=== PATIENT | female | born 1945 | race Caucasian/White ===

== ENCOUNTER 2017-04-27 17:52 | Inpatient (IN) | payer OTHER, BC ==
[~2017-04-27] VITALS: Ht 160 cm; Wt 114.7 kg
[~2017-04-27 17:52] MED LIST: ALLOPURINOL100 MG PO; AMIODARONE HCL200 MG PO; APRESOLINE10 MG PO; BUSPAR10 MG PO; COLACE100 MG PO; CORDARONE200 MG PO; COUMADIN2 MG PO; FERROUS SULFAT325 MG PO; FUROSEMIDE80 MG PO; ISOSORBIDE DINI10 MG PO; KEFLEX500 MG PO; LASIX80 MG PO; LO-DOSE ASPIRIN81 M1 PO; OMEPRAZOLE20 MG PO; PRILOSEC20 MG PO; WARFARIN SODIUM2 MG PO; ZYLOPRIM100 MG PO
[2017-04-27 19:07] LABS: HEMATOCRIT 36.9 % (36.0-46.0); MCH 31.8 PG (29.0-34.0); MCHC 33.3 G/DL (30.0-36.0); MCV 95.3 FL (83-99); MEAN PLAT.VOLUME 9.9 uM^3 (9.5-12.4); PLATELET COUNT 125 K/uL (156-360); RBC DIS.WIDTH-CV 14.6 % (11.8-14.6); RBC DIS.WIDTH-SD 50.9 % (39-53); RED BLOOD COUNT 3.87 M/uL (3.80-5.20); WHITE BLOOD COUNT 11.8 K/uL (4.1-10.2)
[2017-04-27 19:20] LABS: CHLORIDE 103 mEq/L (99-109); POTASSIUM 3.8 mEq/L (3.7-5.4); SODIUM 137 mEq/L (136-147)
[2017-04-27 19:22] LABS: GLUCOSE 123 mg/dL (70-99)
[2017-04-27 19:23] LABS: ANION GAP 11 MEQ/L (2-14)
[2017-04-27 19:24] LABS: TOTAL BILIRUBIN 0.9 mg/dL (0.0-1.0)
[2017-04-27 19:26] LABS: ALKALINE PHOSPHATASE 99 IU/L (3-129); GFR ESTIMATE (CALCULATED) 23 mL/min/
[2017-04-27 19:27] LABS: D-DIMER ELISA > 4.00 mg/L FEU (< 0.57); TROP-I INTERPRETATION NEGATIVE; UREA NITROGEN (BUN) 56 mg/dL (9-23)
[2017-04-27 19:29] LABS: CREATINE KINASE 16 IU/L (1-294)
[2017-04-27 19:44] LABS: INTER. NORMALIZED RATIO 3.4; PROTHROMBIN TIME 36.3 (9.2-11.2); PTT 29.9 (25-32)
[2017-04-27 19:53] LABS: ADD MIUA? YES; BILIRUBIN NEGATIVE; BLOOD SMALL; COLOR YELLOW ((YELLOW)); GLUCOSE (STRIP) NEGATIVE; KETONES NEGATIVE; LEUKOCYTES SMALL; NITRITE NEGATIVE; PROTEIN (STRIP) NEGATIVE; SPECIFIC GRAVITY 1.017 (1.000-1.030); UROBILINOGEN 0.2 MG/DL (0.2-1.0)
[2017-04-27 20:05] LABS: BACTERIA RARE /HPF; EPITHELIAL CELLS 2+ /HPF; MUCUS TRACE /LPF; RED BLOOD CELLS 0-5 /HPF (0-5); UCUL ADDED? NO
[2017-04-27] MEDS ORDERED: COUMADIN3 MG PO (20:45)
[2017-04-27] MEDS ORDERED: SANCTURA XR60 MG PO (20:48)
[2017-04-27] MEDS ORDERED: CLEOCIN300 MG PO (20:50)
[2017-04-27 22:59] VITALS: BP 135/62
[2017-04-28 02:13] LABS: TROP-I INTERPRETATION NEGATIVE; TROPONIN-I 0.11 ng/mL (0.0-0.30)
[2017-04-28 04:37] VITALS: BP 131/60
[2017-04-28 07:50] LABS: HEMATOCRIT 31.4 % (36.0-46.0); MCH 32.6 PG (29.0-34.0); MCHC 33.8 G/DL (30.0-36.0); MCV 96.6 FL (83-99); MEAN PLAT.VOLUME 10.4 uM^3 (9.5-12.4); PLATELET COUNT 110 K/uL (156-360); RBC DIS.WIDTH-CV 14.9 % (11.8-14.6); RBC DIS.WIDTH-SD 52.9 % (39-53); RED BLOOD COUNT 3.25 M/uL (3.80-5.20); WHITE BLOOD COUNT 9.8 K/uL (4.1-10.2)
[2017-04-28 07:59] LABS: PROTHROMBIN TIME 31.4 (9.2-11.2)
[2017-04-28 08:20] LABS: TROP-I INTERPRETATION NEGATIVE; TROPONIN-I 0.09 ng/mL (0.0-0.30)
[2017-04-28 08:21] LABS: ALKALINE PHOSPHATASE 76 IU/L (3-129); ANION GAP 7 MEQ/L (2-14); CHLORIDE 107 MEQ/L (99-109); GFR ESTIMATE (CALCULATED) 26 mL/min/; GLUCOSE 110 mg/dL (70-99); POTASSIUM 3.7 MEQ/L (3.7-5.4); SAMPLE HEMOLYSIS CHECK 0; SAMPLE ICTERIC CHECK 0; SAMPLE LIPEMIA CHECK 0; SODIUM 141 MEQ/L (136-147); TOTAL BILIRUBIN 1.1 MG/DL (0.0-1.0); UREA NITROGEN (BUN) 55 mg/dL (9-23)
[2017-04-28 09:00] VITALS: BP 139/64; BP 142/65
[2017-04-28 09:07] VITALS: BP 144/70
[2017-04-28 12:00] VITALS: BP 129/60
[2017-04-28 13:40] VITALS: BP 134/65
[2017-04-28 18:14] LABS: METH RESISTANT S AUREUS PCR NEGATIVE (NEGATIVE)
[2017-04-28 18:18] LABS: PROBE CHECK PASS; SPECIMEN PROCESSING CONTROL PASS
[2017-04-28 19:00] VITALS: BP 131/60
[2017-04-29] VITALS (7 sets, daily range): BP systolic 127–164; BP diastolic 58–70
[2017-04-29 07:36] LABS: INTER. NORMALIZED RATIO 1.7; PROTHROMBIN TIME 17.9 (9.2-11.2)
[2017-04-29 08:28] LABS: HEMATOCRIT 30.8 % (36.0-46.0); MCH 32.1 PG (29.0-34.0); MCHC 33.4 G/DL (30.0-36.0); PLATELET COUNT 114 K/uL (156-360); RBC DIS.WIDTH-CV 14.8 % (11.8-14.6); RBC DIS.WIDTH-SD 51.9 % (39-53); RED BLOOD COUNT 3.21 M/uL (3.80-5.20)
[2017-04-29 08:30] LABS: WHITE BLOOD COUNT 6.4 K/uL (4.1-10.2)
[2017-04-29 08:42] LABS: ANION GAP 9 MEQ/L (2-14); CHLORIDE 108 MEQ/L (99-109); GFR ESTIMATE (CALCULATED) 31 mL/min/; GLUCOSE 104 mg/dL (70-99); POTASSIUM 3.6 MEQ/L (3.7-5.4); SAMPLE HEMOLYSIS CHECK 0; SAMPLE ICTERIC CHECK 0; SAMPLE LIPEMIA CHECK 0; SODIUM 141 MEQ/L (136-147); UREA NITROGEN (BUN) 48 mg/dL (9-23)
[2017-04-30 00:23] VITALS: BP 142/56
[2017-04-30 04:05] VITALS: BP 143/84
[2017-04-30 07:26] LABS: INTER. NORMALIZED RATIO 1.6; PROTHROMBIN TIME 16.3 (9.2-11.2)
[2017-04-30 07:50] VITALS: BP 131/58
[2017-04-30 10:19] LABS: HEMATOCRIT 32.2 % (36.0-46.0); MCHC 33.2 G/DL (30.0-36.0); MCV 96.4 FL (83-99); MEAN PLAT.VOLUME 10.2 uM^3 (9.5-12.4); NRBC (%) 0.3 /100 WBC (0-0); PLATELET COUNT 127 K/uL (156-360); RBC DIS.WIDTH-CV 14.6 % (11.8-14.6); RBC DIS.WIDTH-SD 51.4 % (39-53); RED BLOOD COUNT 3.34 M/uL (3.80-5.20); WHITE BLOOD COUNT 6.8 K/uL (4.1-10.2)
[2017-04-30 10:48] LABS: ALKALINE PHOSPHATASE 78 IU/L (3-129); ANION GAP 8 MEQ/L (2-14); CHLORIDE 109 MEQ/L (99-109); GFR ESTIMATE (CALCULATED) 33 mL/min/; GLUCOSE 99 mg/dL (70-99); POTASSIUM 3.7 MEQ/L (3.7-5.4); SAMPLE HEMOLYSIS CHECK 0; SAMPLE ICTERIC CHECK 0; SAMPLE LIPEMIA CHECK 0; SODIUM 141 MEQ/L (136-147); TOTAL BILIRUBIN 1.1 MG/DL (0.0-1.0); UREA NITROGEN (BUN) 40 mg/dL (9-23)
[2017-04-30 11:32] VITALS: BP 140/61
[2017-04-30 16:04] VITALS: BP 129/59
[2017-04-30 20:00] VITALS: BP 121/55
[2017-05-01 00:04] VITALS: BP 148/65
[2017-05-01 04:03] VITALS: BP 129/69
[2017-05-01 06:42] LABS: INTER. NORMALIZED RATIO 1.6; PROTHROMBIN TIME 16.8 (9.2-11.2)
[2017-05-01 08:15] VITALS: BP 174/72
[2017-05-01] MEDS ORDERED: COUMADIN2 MG PO (09:40)
[2017-05-01] MEDS ORDERED: LOVENOX100 MG/1 M SC ×2 (09:41→09:52)
[2017-05-01] MEDS ORDERED: AMPICILLIN SODIU2 GM IV (09:41)
[2017-05-01 12:29] VITALS: BP 159/66
== END 2017-05-01 15:32 | DRG 872 ==
LOC: EME 17:52 → EDOF 21:13 → 5WEST 21:13
PROVIDERS: Family Medicine; Hospitalist; Internal Medicine; Physician Assistant
DX: A41.81 Sepsis due to Enterococcus (principal); I10 Essential (primary) hypertension; I65.21 Occlusion and stenosis of right carotid artery; D69.6 Thrombocytopenia, unspecified; I50.9 Heart failure, unspecified; K21.9 Gastro-esophageal reflux disease without esophagitis; R55 Syncope and collapse; N18.3 Chronic kidney disease, stage 3 (moderate); Z95.2 Presence of prosthetic heart valve; Z79.01 Long term (current) use of anticoagulants; Z95.0 Presence of cardiac pacemaker
CPT/HCPCS: 71020; 71250; 76937; 78582; 80048; 80053; 81003; 82550; 83605; 84484; 85027; 85379; 85610; 85730; 87040; 87077; 87081; 87186; 87641; 87801; 93005; 93306; 93880; 94799; 99281; 99285; A9540; A9567; G0378; G8978 GP CH; G8979 GP CH; G8980 GP CH; J0290; J1650; J7040; J7050

== ENCOUNTER 2017-08-06 13:36 | Inpatient (IN) | payer OTHER, BC ==
[~2017-08-06] VITALS: Ht 157.5 cm; Wt 115.7 kg
[~2017-08-06 13:36] MED LIST changes: +AMPICILLIN SODIU2 GM IV; -BUSPAR10 MG PO; +CLEOCIN300 MG PO; -COLACE100 MG PO; +COUMADIN3 MG PO; -FERROUS SULFAT325 MG PO; -LASIX80 MG PO; +LOVENOX100 MG/1 M SC; -PRILOSEC20 MG PO; -ZYLOPRIM100 MG PO
[2017-08-06 15:40] LABS: EOSINOPHIL (%) 0.1 % (0-5); HEMATOCRIT 33.3 % (36.0-46.0); IMMATURE GRANULOCYTE (%) 0.7 % (0.0-0.7); IMMATURE GRANULOCYTE COUNT 0.1 K/uL; INSTRUMENT ABS NEUTROPHIL CT 12.4 K/uL; LYMPHOCYTE COUNT 0.3 K/uL (1.0-2.8); MCH 31.4 PG (29.0-34.0); MCHC 33.3 G/DL (30.0-36.0); MCV 94.3 FL (83-99); MEAN PLAT.VOLUME 10.7 uM^3 (9.5-12.4); MONOCYTE COUNT 0.7 K/uL (0-0.8); NEUTROPHIL (%) 91.8 % (45-76); NEUTROPHIL COUNT 12.4 K/uL (1.8-6.4); PLATELET COUNT 76 K/uL (156-360); RBC DIS.WIDTH-CV 19.1 % (11.8-14.6); RBC DIS.WIDTH-SD 64.9 % (39-53); RED BLOOD COUNT 3.53 M/uL (3.80-5.20); WHITE BLOOD COUNT 13.5 K/uL (4.1-10.2)
[2017-08-06 15:49] LABS: CHLORIDE 106 mEq/L (99-109); POTASSIUM 4.9 mEq/L (3.7-5.4); SODIUM 137 mEq/L (136-147)
[2017-08-06 15:50] LABS: MAGNESIUM 1.8 mg/dL (1.3-2.7)
[2017-08-06 15:51] LABS: GLUCOSE 117 mg/dL (70-99)
[2017-08-06 15:52] LABS: ANION GAP 11 MEQ/L (2-14)
[2017-08-06 15:55] LABS: GFR ESTIMATE (CALCULATED) 22 mL/min/
[2017-08-06 15:56] LABS: UREA NITROGEN (BUN) 71 mg/dL (9-23)
[2017-08-06 16:00] LABS: TROP-I INTERPRETATION NEGATIVE; TROPONIN-I 0.23 ng/mL (0.0-0.30)
[2017-08-06 16:06] LABS: ADD MIUA? YES; BILIRUBIN NEGATIVE; BLOOD NEGATIVE; COLOR AMBER ((YELLOW)); GLUCOSE (STRIP) NEGATIVE; KETONES NEGATIVE; LEUKOCYTES NEGATIVE; NITRITE NEGATIVE; PROTEIN (STRIP) NEGATIVE; SPECIFIC GRAVITY 1.014 (1.000-1.030)
[2017-08-06 16:16] LABS: BACTERIA NONE SEEN /HPF; EPITHELIAL CELLS RARE /HPF; MUCUS TRACE /LPF; RED BLOOD CELLS 0-5 /HPF (0-5); UCUL ADDED? NO; WHITE BLOOD CELLS 0-5 /HPF (0-5)
[2017-08-06 16:19] LABS: PTT 31.1 SEC (25-37)
[2017-08-06 16:23] LABS: PROTHROMBIN TIME 53.5 SEC (10.2-12.9)
[2017-08-06 16:24] LABS: INTER. NORMALIZED RATIO 4.6
[2017-08-06 16:44] LABS: INFLUENZA A VIRAL ANTIGEN NEGATIVE; INFLUENZA B VIRAL ANTIGEN NEGATIVE
[2017-08-06] MEDS ORDERED: ZYLOPRIM100 MG PO (18:44)
[2017-08-06] MEDS ORDERED: FERROUS SULFAT325 MG PO (18:44)
[2017-08-06] MEDS ORDERED: ISOSORBIDE DINI10 MG PO (18:44)
[2017-08-06] MEDS ORDERED: PRILOSEC20 MG PO (18:44)
[2017-08-06] MEDS ORDERED: COLACE100 MG PO (18:44)
[2017-08-06] MEDS ORDERED: SANCTURA XR60 MG PO (18:44)
[2017-08-06] MEDS ORDERED: BUSPAR10 MG PO (18:44)
[2017-08-06] MEDS ORDERED: APRESOLINE10 MG PO (18:44)
[2017-08-06] MEDS ORDERED: LASIX80 MG PO (18:44)
[2017-08-06] MEDS ORDERED: KLOR-CON M2020 MEQ PO (18:46)
[2017-08-06] MEDS ORDERED: COUMADIN3 MG PO (18:46)
[2017-08-06] MEDS ORDERED: COUMADIN2 MG PO (18:46)
[2017-08-06] MEDS ORDERED: PERCOCET 5/31 TABLET PO (18:46)
[2017-08-06] MEDS ORDERED: ASPIR 8181 M1 PO (18:47)
[2017-08-06] MEDS ORDERED: FLEXERIL5 MG PO (18:47)
[2017-08-07 03:54] VITALS: BP 135/66
[2017-08-07 06:22] LABS: HEMATOCRIT 31.7 % (36.0-46.0); MCH 31.3 PG (29.0-34.0); MCHC 31.9 G/DL (30.0-36.0); MCV 98.1 FL (83-99); MEAN PLAT.VOLUME 11.2 uM^3 (9.5-12.4); PLATELET COUNT 74 K/uL (156-360); RBC DIS.WIDTH-CV 19.4 % (11.8-14.6); RBC DIS.WIDTH-SD 69.3 % (39-53); RED BLOOD COUNT 3.23 M/uL (3.80-5.20); WHITE BLOOD COUNT 12.3 K/uL (4.1-10.2)
[2017-08-07 06:49] LABS: ANION GAP 10 MEQ/L (2-14); CHLORIDE 106 MEQ/L (99-109); GFR ESTIMATE (CALCULATED) 23 mL/min/; GLUCOSE 101 mg/dL (70-99); POTASSIUM 4.9 MEQ/L (3.7-5.4); SAMPLE HEMOLYSIS CHECK 0; SAMPLE ICTERIC CHECK 0; SAMPLE LIPEMIA CHECK 0; SODIUM 136 MEQ/L (136-147); UREA NITROGEN (BUN) 74 mg/dL (9-23)
[2017-08-07 08:46] VITALS: BP 136/74
[2017-08-07 11:33] LABS: INTER. NORMALIZED RATIO 5.7; PROTHROMBIN TIME 67.7 SEC (10.2-12.9)
[2017-08-07 11:34] VITALS: BP 132/60
[2017-08-07 18:23] VITALS: BP 181/93
[2017-08-07 23:37] VITALS: BP 146/65
[2017-08-08 03:30] VITALS: BP 144/63
[2017-08-08 07:08] LABS: EOSINOPHIL (%) 0.1 % (0-5); HEMATOCRIT 30.5 % (36.0-46.0); IMMATURE GRANULOCYTE (%) 1.3 % (0.0-0.7); IMMATURE GRANULOCYTE COUNT 0.2 K/uL; INSTRUMENT ABS NEUTROPHIL CT 17.4 K/uL; LYMPHOCYTE COUNT 0.6 K/uL (1.0-2.8); MCH 31.5 PG (29.0-34.0); MCHC 32.8 G/DL (30.0-36.0); MCV 96.2 FL (83-99); MEAN PLAT.VOLUME 11.4 uM^3 (9.5-12.4); MONOCYTE (%) 4.8 % (3-12); MONOCYTE COUNT 0.9 K/uL (0-0.8); NEUTROPHIL (%) 90.4 % (45-76); NEUTROPHIL COUNT 17.4 K/uL (1.8-6.4); PLATELET COUNT 85 K/uL (156-360); RBC DIS.WIDTH-CV 19.3 % (11.8-14.6); RBC DIS.WIDTH-SD 66.6 % (39-53); RED BLOOD COUNT 3.17 M/uL (3.80-5.20); WHITE BLOOD COUNT 19.2 K/uL (4.1-10.2)
[2017-08-08 07:16] LABS: INTER. NORMALIZED RATIO 7.5; PROTHROMBIN TIME 89.4 SEC (10.2-12.9)
[2017-08-08 07:31] LABS: ALKALINE PHOSPHATASE 90 IU/L (3-129); ANION GAP 10 MEQ/L (2-14); CHLORIDE 105 MEQ/L (99-109); GFR ESTIMATE (CALCULATED) 19 mL/min/; GLOBULINS 3.6 G/DL (2.3-3.5); GLUCOSE 125 mg/dL (70-99); POTASSIUM 4.9 MEQ/L (3.7-5.4); SAMPLE HEMOLYSIS CHECK 0; SAMPLE ICTERIC CHECK 0; SAMPLE LIPEMIA CHECK 0; SODIUM 134 MEQ/L (136-147); TOTAL BILIRUBIN 1.6 MG/DL (0.0-1.0); UREA NITROGEN (BUN) 74 mg/dL (9-23)
[2017-08-08 07:49] VITALS: BP 130/60
[2017-08-08 11:02] VITALS: BP 122/68
[2017-08-08 15:26] VITALS: BP 138/62
[2017-08-08 19:08] VITALS: BP 162/78
[2017-08-08 23:49] VITALS: BP 123/64
[2017-08-09 03:35] VITALS: BP 133/74
[2017-08-09 05:49] LABS: HEMATOCRIT 31.6 % (36.0-46.0); MCH 32.1 PG (29.0-34.0); MCHC 32.6 G/DL (30.0-36.0); MCV 98.4 FL (83-99); MEAN PLAT.VOLUME 11.2 uM^3 (9.5-12.4); PLATELET COUNT 85 K/uL (156-360); RBC DIS.WIDTH-CV 19.5 % (11.8-14.6); RBC DIS.WIDTH-SD 69.4 % (39-53); RED BLOOD COUNT 3.21 M/uL (3.80-5.20); WHITE BLOOD COUNT 9.7 K/uL (4.1-10.2)
[2017-08-09 06:10] LABS: ANION GAP 10 MEQ/L (2-14); CHLORIDE 106 MEQ/L (99-109); GFR ESTIMATE (CALCULATED) 23 mL/min/; GLUCOSE 119 mg/dL (70-99); POTASSIUM 4.4 MEQ/L (3.7-5.4); SAMPLE HEMOLYSIS CHECK 0; SAMPLE ICTERIC CHECK 0; SAMPLE LIPEMIA CHECK 0; SODIUM 136 MEQ/L (136-147); UREA NITROGEN (BUN) 71 mg/dL (9-23)
[2017-08-09 06:51] LABS: INTER. NORMALIZED RATIO 6.4; PROTHROMBIN TIME 75.9 SEC (10.2-12.9)
[2017-08-09 07:48] VITALS: BP 127/80
[2017-08-09 11:32] LABS: ANTI-HEPATITIS A VIRUS (IGM) Nonreactive; HAV INDEX 0.18; HBSG INDEX 0.16; HPCA INDEX 0.15
[2017-08-09 11:34] LABS: ANTI-HEPATITIS B CORE (IGM) Nonreactive; HBC IgM INDEX 0.21
[2017-08-09 11:45] VITALS: BP 149/70
[2017-08-09 16:17] VITALS: BP 136/88
[2017-08-09 20:24] VITALS: BP 170/75
[2017-08-09 23:56] VITALS: BP 138/63
[2017-08-10 04:08] VITALS: BP 124/69
[2017-08-10 05:43] LABS: HEMATOCRIT 30.7 % (36.0-46.0); MCH 32.4 PG (29.0-34.0); MCHC 32.9 G/DL (30.0-36.0); MCV 98.4 FL (83-99); PLATELET COUNT 94 K/uL (156-360); RBC DIS.WIDTH-CV 19.6 % (11.8-14.6); RBC DIS.WIDTH-SD 69.2 % (39-53); RED BLOOD COUNT 3.12 M/uL (3.80-5.20); WHITE BLOOD COUNT 9.6 K/uL (4.1-10.2)
[2017-08-10 06:08] LABS: PROTHROMBIN TIME 65.6 SEC (10.2-12.9)
[2017-08-10 06:11] LABS: INTER. NORMALIZED RATIO 5.6
[2017-08-10 06:16] LABS: ANION GAP 9 MEQ/L (2-14); CHLORIDE 105 MEQ/L (99-109); GFR ESTIMATE (CALCULATED) 24 mL/min/; GLUCOSE 105 mg/dL (70-99); POTASSIUM 4.6 MEQ/L (3.7-5.4); SAMPLE HEMOLYSIS CHECK 0; SAMPLE ICTERIC CHECK 0; SAMPLE LIPEMIA CHECK 0; SODIUM 136 MEQ/L (136-147); UREA NITROGEN (BUN) 69 mg/dL (9-23)
[2017-08-10 08:12] VITALS: BP 136/82
[2017-08-10 11:01] LABS: ALBUMIN 2.97 G/DL (3.6-4.9); ALBUMIN PERCENT 47.2 % (49.3-67.1); ALPHA-1 GLOBULIN 0.59 G/DL (0.15-0.40); ALPHA-1 PERCENT 9.3 % (2.1-5.5); ALPHA-2 GLOBULIN 0.56 G/DL (0.45-0.85); ALPHA-2 PERCENT 8.9 % (6.2-11.6); BETA PERCENT 8.6 % (8.9-15.8)
[2017-08-10 12:04] VITALS: BP 132/61
[2017-08-10 15:34] VITALS: BP 128/59
[2017-08-10 20:00] VITALS: BP 112/70
[2017-08-11 00:03] VITALS: BP 110/71
[2017-08-11 03:49] VITALS: BP 130/61
[2017-08-11 06:32] LABS: ANION GAP 9 MEQ/L (2-14); CHLORIDE 104 MEQ/L (99-109); GFR ESTIMATE (CALCULATED) 24 mL/min/; GLUCOSE 107 mg/dL (70-99); POTASSIUM 4.7 MEQ/L (3.7-5.4); SAMPLE HEMOLYSIS CHECK 0; SAMPLE ICTERIC CHECK 0; SAMPLE LIPEMIA CHECK 0; SODIUM 135 MEQ/L (136-147); UREA NITROGEN (BUN) 68 mg/dL (9-23)
[2017-08-11 06:44] LABS: INTER. NORMALIZED RATIO 4.5; PROTHROMBIN TIME 52.7 SEC (10.2-12.9)
[2017-08-11 07:45] VITALS: BP 124/89
[2017-08-11 11:30] VITALS: BP 127/63
[2017-08-11 15:47] VITALS: BP 127/65
[2017-08-12] VITALS (7 sets, daily range): BP systolic 120–146; BP diastolic 62–79
[2017-08-12 08:53] LABS: ANION GAP 12 MEQ/L (2-14); CHLORIDE 102 MEQ/L (99-109); GFR ESTIMATE (CALCULATED) 26 mL/min/; GLUCOSE 105 mg/dL (70-99); POTASSIUM 4.6 MEQ/L (3.7-5.4); SAMPLE HEMOLYSIS CHECK 0; SAMPLE ICTERIC CHECK 0; SAMPLE LIPEMIA CHECK 0; SODIUM 134 MEQ/L (136-147); UREA NITROGEN (BUN) 66 mg/dL (9-23)
[2017-08-12 09:02] LABS: EOSINOPHIL (%) 0.6 % (0-5); EOSINOPHIL COUNT 0.1 K/uL (0-0.3); HEMATOCRIT 33.5 % (36.0-46.0); IMMATURE GRANULOCYTE (%) 4.5 % (0.0-0.7); IMMATURE GRANULOCYTE COUNT 0.5 K/uL; INSTRUMENT ABS NEUTROPHIL CT 9.6 K/uL; LYMPHOCYTE COUNT 0.8 K/uL (1.0-2.8); MCHC 32.2 G/DL (30.0-36.0); MCV 99.4 FL (83-99); MEAN PLAT.VOLUME 11.2 uM^3 (9.5-12.4); MONOCYTE (%) 6.8 % (3-12); MONOCYTE COUNT 0.8 K/uL (0-0.8); NEUTROPHIL COUNT 9.6 K/uL (1.8-6.4); NRBC (%) 0.3 /100 WBC (0-0); RBC DIS.WIDTH-CV 20.3 % (11.8-14.6); RED BLOOD COUNT 3.37 M/uL (3.80-5.20); WHITE BLOOD COUNT 11.9 K/uL (4.1-10.2)
[2017-08-12 09:27] LABS: PLATELET COUNT 141 K/uL (156-360)
[2017-08-12 09:44] LABS: ALKALINE PHOSPHATASE 101 IU/L (3-129); DIRECT BILIRUBIN 0.9 mg/dL (0.0-0.3); MAGNESIUM 2.5 mg/dl (1.3-2.7); TOTAL BILIRUBIN 1.9 MG/DL (0.0-1.0)
[2017-08-12 18:10] LABS: POINT-OF-CARE METER ID UU14174216
[2017-08-13] VITALS (7 sets, daily range): BP systolic 108–144; BP diastolic 58–74
[2017-08-13 00:17] LABS: POINT-OF-CARE METER ID UU13113698
[2017-08-13 09:01] LABS: INTER. NORMALIZED RATIO 3.2; PROTHROMBIN TIME 37.2 SEC (10.2-12.9)
[2017-08-13 09:05] LABS: HEMATOCRIT 35.5 % (36.0-46.0); MCH 31.5 PG (29.0-34.0); MCHC 31.5 G/DL (30.0-36.0); NRBC (%) 0.3 /100 WBC (0-0); RBC DIS.WIDTH-CV 21.2 % (11.8-14.6); RBC DIS.WIDTH-SD 68.2 % (39-53); RED BLOOD COUNT 3.55 M/uL (3.80-5.20); WHITE BLOOD COUNT 14.5 K/uL (4.1-10.2)
[2017-08-13 09:31] LABS: ANION GAP 16 MEQ/L (2-14); CHLORIDE 107 MEQ/L (99-109); GFR ESTIMATE (CALCULATED) 24 mL/min/; GLUCOSE 85 mg/dL (70-99); POTASSIUM 5.7 MEQ/L (3.7-5.4); SAMPLE HEMOLYSIS CHECK 0; SAMPLE ICTERIC CHECK 0; SAMPLE LIPEMIA CHECK 0; SODIUM 135 MEQ/L (136-147); UREA NITROGEN (BUN) 72 mg/dL (9-23)
[2017-08-13 10:24] LABS: EOSINOPHIL (%) 0.1 % (0-5); IMMATURE GRANULOCYTE (%) 2.3 % (0.0-0.7); IMMATURE GRANULOCYTE COUNT 0.3 K/uL; INSTRUMENT ABS NEUTROPHIL CT 12.5 K/uL; LYMPHOCYTE COUNT 0.7 K/uL (1.0-2.8); MEAN PLAT.VOLUME 10.7 uM^3 (9.5-12.4); MONOCYTE (%) 6.4 % (3-12); MONOCYTE COUNT 0.9 K/uL (0-0.8); NEUTROPHIL (%) 86.4 % (45-76); NEUTROPHIL COUNT 12.5 K/uL (1.8-6.4); PLAT.SUFFICIENCY DECREASED; PLATELET COUNT 98 K/uL (156-360)
[2017-08-13 17:06] LABS: ANION GAP 12 MEQ/L (2-14); CHLORIDE 105 MEQ/L (99-109); POTASSIUM 5.3 MEQ/L (3.7-5.4); SAMPLE HEMOLYSIS CHECK 0; SAMPLE ICTERIC CHECK 0; SAMPLE LIPEMIA CHECK 0; SODIUM 136 MEQ/L (136-147)
[2017-08-13 17:11] LABS: GFR ESTIMATE (CALCULATED) 21 mL/min/; HDL CHOLESTEROL 14 MG/DL (Desirable>=50); LDL CHOLESTEROL 59 mg/dL (Desirable<100); NON-HDL CHOLESTEROL 81 mg/dL (Desirable<160); TOTAL CHOLESTEROL 95 mg/dL (Desirable<200); TRIGLYCERIDES 109 MG/DL (Normal: <150); UREA NITROGEN (BUN) 79 mg/dL (9-23)
[2017-08-13 17:13] LABS: GLUCOSE 118 mg/dL (70-99)
[2017-08-13 23:46] LABS: POINT-OF-CARE METER ID UU13113698
[2017-08-14 04:16] VITALS: BP 135/71
[2017-08-14 06:06] LABS: POINT-OF-CARE METER ID UU13113781
[2017-08-14 06:44] LABS: EOSINOPHIL (%) 0.5 % (0-5); EOSINOPHIL COUNT 0.1 K/uL (0-0.3); HEMATOCRIT 34.4 % (36.0-46.0); IMMATURE GRANULOCYTE COUNT 0.2 K/uL; INSTRUMENT ABS NEUTROPHIL CT 10.2 K/uL; LYMPHOCYTE COUNT 0.8 K/uL (1.0-2.8); MCH 32.2 PG (29.0-34.0); MCV 100.6 FL (83-99); MEAN PLAT.VOLUME 11.1 uM^3 (9.5-12.4); MONOCYTE (%) 6.1 % (3-12); MONOCYTE COUNT 0.7 K/uL (0-0.8); NEUTROPHIL (%) 84.3 % (45-76); NEUTROPHIL COUNT 10.2 K/uL (1.8-6.4); NRBC (%) 0.5 /100 WBC (0-0); PLATELET COUNT 123 K/uL (156-360); RBC DIS.WIDTH-CV 22.1 % (11.8-14.6); RBC DIS.WIDTH-SD 72.4 % (39-53); RED BLOOD COUNT 3.42 M/uL (3.80-5.20); WHITE BLOOD COUNT 12.1 K/uL (4.1-10.2)
[2017-08-14 07:17] LABS: ALKALINE PHOSPHATASE 93 IU/L (3-129); ANION GAP 13 MEQ/L (2-14); CHLORIDE 104 MEQ/L (99-109); GFR ESTIMATE (CALCULATED) 22 mL/min/; GLUCOSE 122 mg/dL (70-99); POTASSIUM 4.8 MEQ/L (3.7-5.4); SAMPLE HEMOLYSIS CHECK 0; SAMPLE ICTERIC CHECK 0; SAMPLE LIPEMIA CHECK 0; SODIUM 135 MEQ/L (136-147); TOTAL BILIRUBIN 2.2 MG/DL (0.0-1.0); UREA NITROGEN (BUN) 80 mg/dL (9-23)
[2017-08-14 08:05] VITALS: BP 133/76
[2017-08-14 08:09] LABS: INTER. NORMALIZED RATIO 4.8; PROTHROMBIN TIME 55.8 SEC (10.2-12.9)
[2017-08-14 10:46] VITALS: BP 133/84
[2017-08-14 15:59] VITALS: BP 142/65
[2017-08-14 18:57] LABS: POINT-OF-CARE METER ID UU14174216
[2017-08-14 19:36] VITALS: BP 110/70
[2017-08-14 22:43] VITALS: BP 152/72
[2017-08-15] VITALS (8 sets, daily range): BP systolic 0–157; BP diastolic 0–79
[2017-08-15 06:50] LABS: EOSINOPHIL (%) 0.4 % (0-5); EOSINOPHIL COUNT 0.1 K/uL (0-0.3); HEMATOCRIT 38.7 % (36.0-46.0); IMMATURE GRANULOCYTE (%) 3.5 % (0.0-0.7); IMMATURE GRANULOCYTE COUNT 0.5 K/uL; INSTRUMENT ABS NEUTROPHIL CT 12.9 K/uL; LYMPHOCYTE COUNT 1.3 K/uL (1.0-2.8); MCH 31.6 PG (29.0-34.0); MCHC 30.5 G/DL (30.0-36.0); MCV 103.5 FL (83-99); MONOCYTE (%) 5.3 % (3-12); MONOCYTE COUNT 0.8 K/uL (0-0.8); NEUTROPHIL (%) 82.2 % (45-76); NEUTROPHIL COUNT 12.9 K/uL (1.8-6.4); NRBC (%) 0.8 /100 WBC (0-0); RBC DIS.WIDTH-CV 23.1 % (11.8-14.6); RED BLOOD COUNT 3.74 M/uL (3.80-5.20); WHITE BLOOD COUNT 15.6 K/uL (4.1-10.2)
[2017-08-15 08:10] LABS: ALKALINE PHOSPHATASE 98 IU/L (3-129); ANION GAP 16 MEQ/L (2-14); CHLORIDE 100 MEQ/L (99-109); FERRITIN 674 NG/ML (10-291); GLUCOSE 113 mg/dL (70-99); IRON 61 MCG/DL (35-150); SAMPLE HEMOLYSIS CHECK 1; SAMPLE ICTERIC CHECK 0; SAMPLE LIPEMIA CHECK 0; SODIUM 131 MEQ/L (136-147); UREA NITROGEN (BUN) 86 mg/dL (9-23)
[2017-08-15 08:14] LABS: GFR ESTIMATE (CALCULATED) 18 mL/min/; POTASSIUM 5.8 MEQ/L (3.7-5.4); TOTAL BILIRUBIN 2.7 MG/DL (0.0-1.0)
[2017-08-15 08:23] LABS: MEAN PLAT.VOLUME 12.2 uM^3 (9.5-12.4); PLAT.SUFFICIENCY DECREASED; PLATELET COUNT 108 K/uL (156-360)
[2017-08-15 08:50] LABS: INTER. NORMALIZED RATIO 8.1
[2017-08-15 13:29] LABS: POINT-OF-CARE METER ID UU13113698
[2017-08-15 19:03] LABS: POINT-OF-CARE METER ID UU14174216
[2017-08-15 23:29] LABS: BASE EXCESS -20.8 mEq/L (-3 to +3); BICARBONATE 10.6 mEq/L (22-26); CARBOXY HGB 2.9 % (0-5); METHEMOGLOBIN 1.5 % (0-1.5); PCO2 46 mm Hg (35-45); PO2 126 mm Hg (80-100)
[2017-08-15 23:30] LABS: COMMENTS - BLOOD GASES C+A+; DEVICE NRBM; FI02 100 %; O2 FLOW 15 L/MIN; SITE LR; TOTAL RESP RATE 14 resp/min; pH 6.97 (7.35-7.45)
[2017-08-16] VITALS (8 sets, daily range): BP systolic 0–54; BP diastolic 0
[2017-08-16 00:05] LABS: POINT-OF-CARE METER ID UU14162636
[2017-08-16 00:36] LABS: POINT-OF-CARE METER ID UU14162636
[2017-08-16 01:03] LABS: EOSINOPHIL (%) 0 % (0-5); HEMATOCRIT 36.7 % (36.0-46.0); IMMATURE GRANULOCYTE (%) 3.4 % (0.0-0.7); IMMATURE GRANULOCYTE COUNT 0.8 K/uL; INSTRUMENT ABS NEUTROPHIL CT 20.4 K/uL; LYMPHOCYTE COUNT 0.7 K/uL (1.0-2.8); MCH 32.5 PG (29.0-34.0); MCHC 30.2 G/DL (30.0-36.0); MCV 107.3 FL (83-99); MEAN PLAT.VOLUME 11.3 uM^3 (9.5-12.4); MONOCYTE (%) 5.1 % (3-12); MONOCYTE COUNT 1.2 K/uL (0-0.8); NEUTROPHIL (%) 88.4 % (45-76); NEUTROPHIL COUNT 20.4 K/uL (1.8-6.4); PLATELET COUNT 109 K/uL (156-360); RBC DIS.WIDTH-CV 23.6 % (11.8-14.6); RBC DIS.WIDTH-SD 87.2 % (39-53); RED BLOOD COUNT 3.42 M/uL (3.80-5.20); WHITE BLOOD COUNT 23.1 K/uL (4.1-10.2)
[2017-08-16 01:26] LABS: TROP-I INTERPRETATION INDETERMINATE; TROPONIN-I 0.52 ng/mL (0.0-0.30)
[2017-08-16 01:59] LABS: METH RESISTANT S AUREUS PCR POSITIVE (NEGATIVE)
[2017-08-16 02:04] LABS: PROBE CHECK PASS
[2017-08-16 20:12] LABS: POINT-OF-CARE METER ID UU14174216
[2017-08-16 20:45] LABS: POINT-OF-CARE METER ID UU14174216
== END 2017-08-16 02:24 | DRG 314 ==
LOC: EME 13:36 → 4WEST 17:57 → EDOF 17:57 → ENRESERV 17:57 → 5SOUTH 17:57 → 4EAST 17:57 → 5SOUTH 21:17 → ENRESERV 21:17 → 5SOUTH 22:09 → ENRESERV 08-12 15:23 → 5SOUTH 08-12 15:28 → 4EAST 08-12 16:30 → ENRESERV 08-15 23:35 → 4WEST 08-15 23:37 → CANRESERV 08-16 01:06 → 4WEST 08-16 01:06 → ENRESERV 08-16 01:06 → 4WEST 08-16 02:24
PROVIDERS: Emergency Medicine; Hospitalist; Internal Medicine Critical Care Medicine; Internal Medicine Nephrology; Nurse Practitioner Adult Health; Student in an Organized Health Care Education/Training Program
DX: T82.6XXA Infection and inflammatory reaction due to cardiac valve prosthesis, initial encounter (principal); Y83.2 Surgical operation with anastomosis, bypass or graft as the cause of abnormal reaction of the patient, or of later complication, without mention of misadventure at the time of the procedure; A41.81 Sepsis due to Enterococcus; R65.21 Severe sepsis with septic shock; I48.0 Paroxysmal atrial fibrillation; E87.2 Acidosis; E87.5 Hyperkalemia; R09.02 Hypoxemia; D65 Disseminated intravascular coagulation [defibrination syndrome]; Z66 Do not resuscitate; Z51.5 Encounter for palliative care; I33.0 Acute and subacute infective endocarditis; N17.0 Acute kidney failure with tubular necrosis; I63.9 Cerebral infarction, unspecified; G81.91 Hemiplegia, unspecified affecting right dominant side; R13.10 Dysphagia, unspecified; J18.9 Pneumonia, unspecified organism; J20.8 Acute bronchitis due to other specified organisms; E86.0 Dehydration; E86.1 Hypovolemia; I47.1 Supraventricular tachycardia; D64.9 Anemia, unspecified; D69.6 Thrombocytopenia, unspecified; E78.5 Hyperlipidemia, unspecified; I13.0 Hypertensive heart and chronic kidney disease with heart failure and stage 1 through stage 4 chronic kidney disease, or unspecified chronic kidney disease; I50.9 Heart failure, unspecified; N18.3 Chronic kidney disease, stage 3 (moderate); I25.10 Atherosclerotic heart disease of native coronary artery without angina pectoris; I87.2 Venous insufficiency (chronic) (peripheral); K21.9 Gastro-esophageal reflux disease without esophagitis; M10.9 Gout, unspecified; K76.0 Fatty (change of) liver, not elsewhere classified; K80.20 Calculus of gallbladder without cholecystitis without obstruction; R79.1 Abnormal coagulation profile; T45.515A Adverse effect of anticoagulants, initial encounter; F32.9 Major depressive disorder, single episode, unspecified; F41.9 Anxiety disorder, unspecified; I65.29 Occlusion and stenosis of unspecified carotid artery; M25.511 Pain in right shoulder; E66.01 Morbid (severe) obesity due to excess calories; Z68.42 Body mass index [BMI] 45.0-49.9, adult; Z79.01 Long term (current) use of anticoagulants; Z79.82 Long term (current) use of aspirin; Z95.0 Presence of cardiac pacemaker; Z95.1 Presence of aortocoronary bypass graft; Z95.3 Presence of xenogenic heart valve
CPT/HCPCS: 31500; 36600; 70450; 71010; 71250; 72128; 73030; 76705; 76770; 80048; 80048 91; 80053; 80061; 80069; 80074; 80076; 81003; 82140; 82306; 82607; 82728; 82803; 82948; 83540; 83605; 83735; 83883 90; 84100; 84165; 84443; 84466; 84484; 84999; 85025; 85027; 85384; 85610; 85651; 85730; 86850; 86900; 86901; 87040; 87070; 87077; 87147; 87186; 87205; 87502; 87641; 87801; 92526 GN; 92610 GN; 93005; 93306; 94002; 94660; 94799; 99281; 99285; C1894; C9113; J0290; J0456; J0692; J1644; J2060; J2270; J2540; J3430; J7030; J7050; J7070; J7120